=== PATIENT | male | born 1985 | race African-American/Black ===

== ENCOUNTER 2017-05-31 14:36 | Emergency (ER) | payer MEDICAID ==
[~2017-05-31] VITALS: Ht 177.8 cm; Wt 77.1 kg
--- NOTE | 2017-05-31 14:46 | NUR ---
headache x 3 days, worsening today took tylenol no relief. awaiting md order,
[2017-05-31] MEDS ORDERED: HYDROCODONE/APAP 10/325MG 1 EA TABLET PO ONE (16:00)
[2017-05-31] MEDS ORDERED: ONDANSETRON 4 MG TAB.RAPDIS SL ONE (16:00)
--- NOTE | 2017-05-31 17:13 | NUR ---
Patient discharged to home in stable condition. Written and verbal after care instructions given. Patient verbalizes understanding of instruction.
[2017-05-31 17:15] VITALS: BP 125/83
== END 2017-05-31 17:15 | disposition home or self-care (01) ==
LOC: ER 14:40
DX: R51 Headache (principal); X58.XXXA Exposure to other specified factors, initial encounter; Y93.71 Activity, boxing; Y92.89 Other specified places as the place of occurrence of the external cause; Y99.8 Other external cause status
CPT/HCPCS: 70450; 99284; A4606; Z7610